=== PATIENT | female | born 1950 | race Caucasian/White ===

== ENCOUNTER 2016-09-23 15:36 | Inpatient (IN) ==
[2016-09-23] MEDS ORDERED: *HR* Morphine 2 MG/ML SYRINGE IVP ONE (16:15)
[2016-09-23] MEDS ORDERED: Ondansetron 4 MG/2 ML VIAL IVP ONE (16:15)
[2016-09-23] MEDS ORDERED: 0.9 % Sodium Chloride 1,000 ML IVC ONE (16:15)
--- NOTE | 2016-09-23 16:15 | Emergency Department Note ---
Disposition Clinical Impression: Choledocholithiasis Pancreatitis Qualifiers: Chronicity: acute Pancreatitis type: biliary Acute pancreatitis complication: unspecified Qualified Code(s): K85.10 - Biliary acute pancreatitis without necrosis or infection Disposition: Admitted As Inpatient Condition: Fair Referrals: NO,PCP [Non-Partnered Physician] - Forms: Work/School Release, ED Satisfaction Letter Time of Disposition: 19:23 Abdominal Pain HPI - General Chief Complaint: ED Abdominal Pain Stated Complaint: ABD Pain x2 weeks Time Seen by Provider: 09/23/16 16:07 Source: patient Nursing Notes Reviewed: Yes Vital Signs Reviewed: Yes - History of Present Illness HPI Narrative: 66-year-old female with abdominal pain for the last week. 02/21, crampy epigastric region into her right upper quadrant to her back. Patient states that she has pain about an hour after she eats. Mostly when she eats fatty or greasy foods. Still has a gallbladder, no history of abdominal surgeries. Otherwise fairly healthy history of hypertension and requested reflux. Pt Subjective Complaint: abdominal pain Onset (ago): hour(s) Location: RUQ Pain Severity: moderate, severe Pain Scale: 9 Quality: cramping, aching Radiation: RUQ, epigastric Migration to: no migration Improves with: nothing Worsens with: eating, vomiting Associated symptoms: Reports: nausea, vomiting, fever, chills. Denies: diarrhea Treatments prior to arrival: none - Related Data Home Medications Medication Instructions Recorded Confirmed Aspirin 10/13/15 Hydrochlorothiazide 10/13/15 Ibuprofen 10/13/15 10/13/15 Meclizine 10/13/15 Pravastatin Sodium 10/13/15 PriLOSEC 10/13/15 Requip 10/13/15 Ropinirole 10/13/15 Previous Rx's Medication Instructions Recorded Benzonatate [Tessalon] 200 mg PO TID PRN #30 capsule 10/13/15 Cephalexin [Keflex] 500 mg PO QID #40 capsule 10/13/15 GuaiFENesin ER [Mucinex] 1,200 mg PO BID #20 tbbp.12hr 10/13/15 DiphenhydraMINE [Benadryl] 25 mg PO Q6HR PRN #20 capsule 04/08/16 MethylPREDNISolone [Medrol] 4 mg PO TAPER #21 tablet 04/08/16 Allergies Allergy/AdvReac Type Severity Reaction Status Date / Time Sulfa (Sulfonamide Allergy Hives Verified 04/08/16 13:29 Antibiotics) All systems ED: reviewed and negative except as stated. Constitutional: Reports: as per HPI, chills Eyes: Denies: eye pain Cardiovascular: Denies: chest pain, palpitations Respiratory: Denies: cough, dyspnea Gastrointestinal: Reports: as per HPI, abdominal pain, nausea. Denies: vomiting , diarrhea Genitourinary: Reports: as per HPI Musculoskeletal: Denies: back pain, neck pain Abdominal Pain PMH - Past Medical History Medical history: Reports: hyperlipidemia, hypertension Female Surgical History: Reports: knee replacement Psychiatric history: Reports: anxiety - Social History Smoking status: Never smoker Alcohol use: Reports: none Drug use: Reports: none Physical Exam Constitutional: Moderately uncomfortable, tachycardic, on review Neck: normal inspection, neck is supple, trachea midline Resp: normal chest inspection, CTA bilaterally, no resp distress CV: RRR, no m/g/r GI: + Moreno's sign, positive tenderness in epigastrium. Back: normal inspection, no tenderness to palpation Neuro: A&O3, no gross motor or sensory deficits bilaterally Skin: No rashes, skin warm, dry, intact - General Limitations: no limitations General appearance: alert, in no apparent distress Course Course Narrative: 66-year-old female with epigastric pain and right upper quadrant pain, we will get a CT abdomen as I feel the differential includes pancreatitis and also choledocholithiasis cholecystitis, Colace lithiasis and biliary colic, had a liver function test IV fluids antiemetics and pain control. - Reevaluation(s) Reevaluation #1: CT scan is positive for possible pancreatic tenderness with choledocholithiasis given elevated bilirubin and lipase I did discuss this with the surgeon Dr. berkowitz he stated that this is not a surgical issue at this time, he will see the patient in consult, but patient needs an ERCP with Dr. Luther admission to medicine service for further evaluation Time: 19:22 Vital Signs Temperature 97.4 F L 09/23/16 15:57 Pulse Rate 102 09/23/16 15:57 Respiratory Rate 16 09/23/16 15:57 Blood Pressure 137/82 09/23/16 15:57 O2 Sat by Pulse Oximetry 92 L 09/23/16 15:57 Temperature 97.4 F L 09/23/16 15:57 Pulse Rate 118 09/23/16 17:35 Respiratory Rate 18 09/23/16 17:35 Blood Pressure 121/63 09/23/16 17:35 O2 Sat by Pulse Oximetry 95 09/23/16 17:35 Oxygen Delivery Oxygen Delivery Room Air Abdominal Pain - Differential Diagnosis Differential Diagnosis: Likely: abdominal pain non-specific, acute appendicitis , constipation, diverticulitis, diverticulosis, endometriosis, gastroenteritis - Medical Records Medical records reviewed: Yes I reviewed the patient's medical records. - Lab Data Lab results reviewed: Yes I reviewed the patient's lab results. Result diagrams: 09/23/16 16:35 09/23/16 16:35 Lab Results 09/23/16 09/23/16 09/23/16 Range/Units 16:35 16:35 16:35 WBC 8.1 (4.3-11.1) K/mcL RBC 4.72 (3.82-4.97) M/mcL Hgb 14.4 (11.5-15.4) g/dL Hct 44.2 (35.3-44.9) % MCV 93.6 (83.0-100.0) fL MCH 30.5 (28.0-33.3) pg MCHC 32.6 (31.6-35.5) g/dL RDW 12.4 (11.5-14.5) % Plt Count 314 (140-400) K/mcL MPV 10.1 (9.4-12.4) fL Immature Gran % 0.4 (0-4) % Seg Neutrophils % 76.8 % Lymphocytes % 13.9 % Monocytes % 6.2 % Eosinophils % 2.0 % Basophils % 0.7 % Neutrophils # 6.2 (1.6-8.9) K/mcL Lymphocytes # 1.1 (0.6-4.6) K/mcL Monocytes # 0.5 (0.0-1.3) K/mcL Eosinophils # 0.2 (0.0-0.6) K/mcL Basophils # 0.1 (0.0-0.2) K/mcL Sodium 140 (136-145) mEq/L Potassium 3.5 (3.5-4.5) mEq/L Chloride 102 (98-109) mEq/L Carbon Dioxide 29 (19-29) mEq/L BUN 18 (7-20) mg/dL Creatinine 0.79 (0.57-1.11) mg/dL Est GFR ( Amer) > 60 (> 60) Est GFR (Non-Af Amer) > 60 (> 60) BUN/Creatinine Ratio 23 (6-26) Glucose 166 H (70-99) mg/dL Calculated Osmolality 296 (280-300) Calcium 9.3 (8.6-10.8) mg/dL Total Bilirubin 2.0 H (0.2-1.2) mg/dL Direct Bilirubin 1.3 H (0.0-0.5) mg/dL Indirect Bilirubin 0.7 (0.0-1.2) mg/dL AST 244 H (5-34) Units/L ALT 403 H (0-55) Units/L Alkaline Phosphatase 131 H (38-126) Units/L Troponin I 0.00 (0-0.03) ng/mL Serum Total Protein 7.5 (6.0-8.3) g/dL Albumin 3.4 L (3.5-5.0) g/dL Globulin 4.1 H (2.4-3.5) g/dL Albumin/Globulin Ratio 0.8 L (1.1-2.2) Amylase 261 H (25-125) Units/L Lipase 1412 H (8-78) Units/L - Radiology Data Radiology results reviewed: Yes I reviewed the patient's radiology results. Abdomen/Pelvis CT 09/23/16 16:15 IMPRESSION: 1. Findings suggestive of cholecystitis. Subtle layering hyperdensity in the gallbladder may represent biliary sludge or noncalcified gallstones. 2. Suspected choledocholithiasis given biliary epithelial enhancement suggestive of cholangitis and findings of pancreatitis. Of note, there are no findings suggestive of pancreatic hemorrhage or necrosis. 3. Abnormal endometrial thickening to 1.1 cm, potentially endometrial hyperplasia, polyp, or carcinoma. Recommend gynecology consultation. 4. Additional incidental findings as above. D/ / Nikunj Hermosillo MD / Nikunj Hermosillo MD Interpreting Provider: Nikunj Hermosillo MD - EKG Data EKG attestation: Yes I reviewed and interpreted this EKG. EKG shows normal: sinus rhythm Rate: normal (No acute ischemic changes 85 bpm normal QRS, CA and QT intervals) When compared to previous EKG there are: no significant changes Interpretation: no acute changes - Core Measures AMI Core Measures Followed: No
--- NOTE | 2016-09-23 16:21 | Emergency Department Note ---
START Narrative - START START: I examined this patient and my medical decision-making was reviewed with the COBOL ENGINEER/PA/Advanced Practice Nurse/Resident Physician. I agree with the documented findings, disposition and treatment plan as described except to the extent set forth below. ED attending note: Patient seen with emergency medicine resident Dr. Mills. Please see a copy of his note for details of the H&P, evaluation, management and disposition of this patient. We independently had [id number] contact with the patient Briefly: A 66-year-old female 2 weeks of epigastric right upper quadrant pain getting worse. Still has her gallbladder or epigastric or voluntary guarding but no rebound. Afebrile stable vital signs. Labs medications ibuprofen fluid and CT scan pending. Disposition pending.
[2016-09-23 16:42] LABS: Basophils # 0.1 K/mcL (0.0-0.2); Basophils % 0.7 %; Eosinophils # 0.2 K/mcL (0.0-0.6); Hematocrit 44.2 % (35.3-44.9); Hemoglobin 14.4 g/dL (11.5-15.4); Immature Granulocytes % 0.4 % (0-4); Lymphocytes # 1.1 K/mcL (0.6-4.6); Lymphocytes % 13.9 %; Mean Corpuscular HGB Conc 32.6 g/dL (31.6-35.5); Mean Corpuscular Hemoglobin 30.5 pg (28.0-33.3); Mean Corpuscular Volume 93.6 fL (83.0-100.0); Mean Platelet Volume 10.1 fL (9.4-12.4); Monocytes # 0.5 K/mcL (0.0-1.3); Monocytes % 6.2 %; Neutrophils # 6.2 K/mcL (1.6-8.9); Platelet Count 314 K/mcL (140-400); Red Blood Count 4.72 M/mcL (3.82-4.97); Red Cell Distribution Width 12.4 % (11.5-14.5); Segmented Neutrophils % 76.8 %
[2016-09-23 16:59] LABS: Potassium 3.5 mEq/L (3.5-4.5); Sodium 140 mEq/L (136-145)
[2016-09-23 17:00] LABS: Alanine Aminotransferase 403 Units/L (0-55); Albumin 3.4 g/dL (3.5-5.0); Albumin/Globulin Ratio 0.8 (1.1-2.2); Alkaline Phosphatase 131 Units/L (38-126); Amylase 261 Units/L (25-125); Aspartate Amino Transferase 244 Units/L (5-34); BUN/Creatinine Ratio 23 (6-26); Bilirubin,Direct 1.3 mg/dL (0.0-0.5); Bilirubin,Indirect 0.7 mg/dL (0.0-1.2); Blood Urea Nitrogen 18 mg/dL (7-20); Calcium 9.3 mg/dL (8.6-10.8); Carbon Dioxide 29 mEq/L (19-29); Chloride 102 mEq/L (98-109); Globulin 4.1 g/dL (2.4-3.5); Glucose 166 mg/dL (70-99); Osmolality,Calculated 296 (280-300); Total Protein 7.5 g/dL (6.0-8.3); eGFR For African Americans > 60 (> 60); eGFR For Non-African Americans > 60 (> 60)
[2016-09-23 17:56] LABS: Lipase 1412 Units/L (8-78)
[2016-09-23] MEDS ORDERED: Naloxone 0.4 MG/ML INJ IVP PRN (21:08)
[2016-09-23] MEDS ORDERED: *HR* HYDROmorphone (PF) 1 MG/ML SYRINGE IVP PRN (21:08)
[2016-09-23] MEDS: Pantoprazole 40 MG VIAL IVP SCH (21:42)
--- NOTE | 2016-09-23 22:24 | Internal Med History&Physical ---
Date of Encounter: 09/23/16 Time of Encounter: 20:15 Internal Medicine - H&P: HPI Chief complaint: abdominal pain, nausea, post-prandial nausea and vomiting x weeks Admitted From: Emergency Dept Plans for Post Hospital Care: Home History of present illness: Ms. Taylor is a 66 year old female significant medical history significant for GERD, without history of cholecystectomy, presents with abdominal pain, post- prandial nausea and vomiting of a couple of months which has worsened the past week. She had not been feeling well for a while. Her PCP evaluated her for thyroid disease. Abdominal pain is colicky, epigastric, medial right upper quadrant and sometime mid-abdomen, and radiates to her back. It is 8/10 at its peak. She reports post-prandial nausea and vomiting, often of recently ingested meals. Non-billious, non-bloody. Nausea and vomiting do not really help her pain. No fever, no jaundice or pruritus. No steatorrhea. No personal history of pancreatitis of cholelithiasis. No sick contacts, no recent travel. Her last colonoscopy was 4-5 years ago, it was reported as normal. She is FULL CODE as per discussion. She nominates her daughter, Marianne Garcia, . ROS: A 10-point ROS was performed, positives and relevant negatives are detailed , system-symptom not mentioned are assumed negative unless otherwise stated. PMH: GERD, prediabetes PSurgical history: left total knee replacement Psychiatry hx: none Family History: Father-heart disease, mother add sister: breast cancer Social history: non-smoker, casual alcohol use, illicit drug use. She works at the [employer]. Vital Signs Temperature 97.4 F L 09/23/16 15:57 Pulse Rate 102 09/23/16 15:57 Respiratory Rate 16 09/23/16 15:57 Blood Pressure 137/82 09/23/16 15:57 O2 Sat by Pulse Oximetry 92 L 09/23/16 15:57 Temperature 97.4 F L 09/23/16 15:57 Pulse Rate 118 09/23/16 17:35 Respiratory Rate 18 09/23/16 17:35 Blood Pressure 121/63 09/23/16 17:35 O2 Sat by Pulse Oximetry 95 09/23/16 17:35 In mild distress from abdominal pain Not pale, anicteric afebrile, acyanotic, Chest: Clinically clear Heart: Tachycardia, RR, HS1/2 no m/r/g. Abdomen: soft, tender in the epigastric, medial right upper quadrant and mid- abdomen, no guarding, Moreno's +ve, no masses. BS+. No Colin or Lyon-Valencia sign. : No flank tenderness, no CVA TENDER, NO SUPRAPUBIC TENDERNESS. GUT SORTER: AAO x 3, no gross focal neurological deficits Skin: no active skin lesion Extremities: no pedal edema, no calf tenderness, normal pedal pulses Lab Results 09/23/16 09/23/16 09/23/16 Range/Units 16:35 16:35 16:35 WBC 8.1 (4.3-11.1) K/mcL RBC 4.72 (3.82-4.97) M/mcL Hgb 14.4 (11.5-15.4) g/dL Hct 44.2 (35.3-44.9) % MCV 93.6 (83.0-100.0) fL MCH 30.5 (28.0-33.3) pg MCHC 32.6 (31.6-35.5) g/dL RDW 12.4 (11.5-14.5) % Plt Count 314 (140-400) K/mcL MPV 10.1 (9.4-12.4) fL Immature Gran % 0.4 (0-4) % Seg Neutrophils % 76.8 % Lymphocytes % 13.9 % Monocytes % 6.2 % Eosinophils % 2.0 % Basophils % 0.7 % Neutrophils # 6.2 (1.6-8.9) K/mcL Lymphocytes # 1.1 (0.6-4.6) K/mcL Monocytes # 0.5 (0.0-1.3) K/mcL Eosinophils # 0.2 (0.0-0.6) K/mcL Basophils # 0.1 (0.0-0.2) K/mcL Sodium 140 (136-145) mEq/L Potassium 3.5 (3.5-4.5) mEq/L Chloride 102 (98-109) mEq/L Carbon Dioxide 29 (19-29) mEq/L BUN 18 (7-20) mg/dL Creatinine 0.79 (0.57-1.11) mg/dL Est GFR ( Amer) > 60 (> 60) Est GFR (Non-Af Amer) > 60 (> 60) BUN/Creatinine Ratio 23 (6-26) Glucose 166 H (70-99) mg/dL Calculated Osmolality 296 (280-300) Calcium 9.3 (8.6-10.8) mg/dL Total Bilirubin 2.0 H (0.2-1.2) mg/dL Direct Bilirubin 1.3 H (0.0-0.5) mg/dL Indirect Bilirubin 0.7 (0.0-1.2) mg/dL AST 244 H (5-34) Units/L ALT 403 H (0-55) Units/L Alkaline Phosphatase 131 H (38-126) Units/L Troponin I 0.00 (0-0.03) ng/mL Serum Total Protein 7.5 (6.0-8.3) g/dL Albumin 3.4 L (3.5-5.0) g/dL Globulin 4.1 H (2.4-3.5) g/dL Albumin/Globulin Ratio 0.8 L (1.1-2.2) Amylase 261 H (25-125) Units/L Lipase 1412 H (8-78) Units/L Abdomen/Pelvis CT 09/23/16 16:15 1. Findings suggestive of cholecystitis. Subtle layering hyperdensity in the gallbladder may represent biliary sludge or noncalcified gallstones. 2. Suspected choledocholithiasis given biliary epithelial enhancement suggestive of cholangitis and findings of pancreatitis. Of note, there are no findings suggestive of pancreatic hemorrhage or necrosis. 3. Abnormal endometrial thickening to 1.1 cm, potentially endometrial hyperplasia, polyp, or carcinoma. IMP 1. Acute cholecystitis 2. Probable choledocholithiasis 3. Gall stone pancreatitis 4. The abscence of fever, jaundice, leucocytosis discounts ascending the diagnostic entity ascending cholangitis 5. Thickening of endometrial stripe, PLAN admit keep npo IVF Optimal analgesia IV Zosyn 3.375 mg Q8H Consult GI, will need ERCP Consult general surgery, will need lap cholecystectomy IV protonix SC Heparin for DVT prophylaxis Gynecological evaluation with travaginal sonogram/hysteroscopy and probable endoetrial biopsy to exclude endometrial malignancy. This can be achieved in the out-patient setting. I discussed my findings and assessment with the patient, she verbalized understanding and is agreeable to admission. Admission mandated by clinical diagnosis and intervention needed. Past Med Surg Social Fam HX - Past Medical History Medical history: hyperlipidemia, hypertension Psychiatric history: anxiety - Past Surgical History Surgical History: knee replacement - Social History Smoking Status: Never smoker Smokeless Tobacco Status: No Alcohol use: none Drug use: none - Family History Mother Living Status: Cause of : breast cancer Internal Medicine - H&P: Meds Aspirin 10/13/15 [History] Benzonatate [Tessalon] 200 mg PO TID PRN #30 capsule 10/13/15 [Rx] Cephalexin [Keflex] 500 mg PO QID #40 capsule 10/13/15 [Rx] GuaiFENesin ER [Mucinex] 1,200 mg PO BID #20 tbbp.12hr 10/13/15 [Rx] Hydrochlorothiazide 10/13/15 [History] Ibuprofen 10/13/15 [History] Meclizine 10/13/15 [History] Pravastatin Sodium 10/13/15 [History] PriLOSEC 10/13/15 [History] Requip 10/13/15 [History] Ropinirole 10/13/15 [History] DiphenhydraMINE [Benadryl] 25 mg PO Q6HR PRN #20 capsule 04/08/16 [Rx] MethylPREDNISolone [Medrol] 4 mg PO TAPER #21 tablet 04/08/16 [Rx] Allergies Sulfa (Sulfonamide Antibiotics) Allergy (Verified 04/08/16 13:29) Hives All Systems PM: A 10-system review of systems was performed and is negative for pertinent findings except as documented above in the HPI. - Constitutional Vitals: Temp Pulse Resp BP Pulse Ox 98.1 F 85 18 116/79 96 09/23/16 20:32 09/23/16 20:32 09/23/16 20:32 09/23/16 20:32 09/23/16 20:32 Internal Med - H&P Results - Labs CBC & Chem 7: 09/23/16 16:35 09/23/16 16:35
[2016-09-23] MEDS: Potassium Chloride 20 MEQ in Ringers Solution, Lactated 1,000 ML IVC SCH (22:34)
[2016-09-23] MEDS: *HR* Heparin 5,000 UNIT/ML VIAL SQ SCH (22:36)
[2016-09-24] MEDS: Piperacillin/Tazobactam 3.375 GM in D5% in Water (Mini-Bag+) 100 ML IVPB SCH ×4 (00:04→23:47)
[2016-09-24] MEDS: *HR* Morphine 2 MG/ML SYRINGE IVP PRN ×4 (03:00→21:37)
[2016-09-24] MEDS: Potassium Chloride 20 MEQ in Ringers Solution, Lactated 1,000 ML IVC SCH ×3 (05:17→18:23)
[2016-09-24] MEDS: *HR* Heparin 5,000 UNIT/ML VIAL SQ SCH ×3 (06:03→21:36)
[2016-09-24] MEDS: Pantoprazole 40 MG VIAL IVP SCH (08:38)
--- NOTE | 2016-09-24 10:12 | Gastroenterology Consult Note ---
<Clair Gaston - Last Filed: 09/24/16 12:03> Date of Encounter: 09/24/16 Time of Encounter: 10:50 - Assessment and plan (1) Elevated LFTs Current Visit: Yes Status: Acute Assessment and plan: 2ndary to choledocholelithiasis. Trending lower, alk phos and bili are back to normal. (2) Pancreatitis Current Visit: Yes Status: Acute Assessment and plan: Likely gallstone induced. R/O other causes. Supportive care. BISAP 1. Aleksandra with IOC to r/o any residual stones. Qualifiers: Chronicity: acute Pancreatitis type: biliary Acute pancreatitis complication: unspecified Qualified Code(s): K85.10 - Biliary acute pancreatitis without necrosis or infection - Time Spent With Patient Total time spent is greater than 50% in coordination of care (as documented) at patient's floor/unit and/or counseling patient: less than 15 minutes GI History of Present Illness - Data of Consult Patient: new to practice Consult date: 09/24/16 Requesting Physician: Fletcher Venegas MD - Consult Narrative Reason for consult: Elevated LFTs, pancreatitis History of present illness: Ms. Taylor is a 66 year old female with a PMH of GERD. She presented to ER with abdominal pain, post-prandial nausea and vomiting over a couple of months which has worsened the past week. She had not been feeling well for a while. Her PCP evaluated her for thyroid disease. Abdominal pain is colicky, epigastric, medial right upper quadrant and sometime mid-abdomen, and radiates to her back. It is 8/10 at its peak. She reports post-prandial nausea and vomiting, often of recently ingested meals. Non-billious, non-bloody. Nausea and vomiting do not really help her pain. No fever, no jaundice or pruritus. No steatorrhea. No personal history of pancreatitis of cholelithiasis. No sick contacts, no recent travel. Her last colonoscopy was 4-5 years ago, it was reported as normal. Patient is feeling better today on pain medications, however, her RUQ abd pain has improved. She has had constipation the last couple of months, going up to a week between BM, but denies black or blood in stools. Denies etoh use or history of same. Colonoscopy: 2015 - [place] - tubular adenoma EGD: None noted Past Med Surg Social Fam HX - Past Medical History Medical history: hyperlipidemia, hypertension Psychiatric history: anxiety - Past Surgical History Surgical History: knee replacement - Social History Smoking Status: Never smoker Smokeless Tobacco Status: No Alcohol use: none Drug use: none - Family History Mother Living Status: Cause of : breast cancer - Gastrointestinal NSAID use: None noted Anticoagulation Use: None Number of BM Per Day: qweekly Gastrointestinal: Present: abdominal pain, constipation, nausea, vomiting - Constitutional Constitutional: as per HPI - EENT Eyes: as per HPI Ears: Present: as per HPI Nose, mouth and throat: Present: as per HPI - Cardiovascular Cardiovascular ROS: Present: as per HPI - Respiratory Respiratory IM: Present: as per HPI - Genitourinary Genitourinary: Present: change in color - Neurological ROS Neurological GI: Present: as per HPI - Hematologic/Lymphatic Hematologic/Lymphatic pediatric: Present: as per HPI - Musculoskeletal Musculoskeletal ROS GI: Present: as per HPI - Integumentary Integumentary GI: Present: as per HPI - Psychiatric ROS Psychiatric GI: Present: as per HPI - Endocrine Endocrine IM: Present: as per HPI - Constitutional Vitals: Temp Pulse Resp BP Pulse Ox 98.1 F 89 15 134/78 90 L 09/24/16 05:37 09/24/16 05:37 09/24/16 05:37 09/24/16 05:37 09/24/16 05:37 General appearance: Present: cooperative, A&O X 3, no acute distress, answers questions appropriately - Head Head exam: Present: atraumatic, normocephalic - Eye Eye exam: Present: normal appearance, sclera anicteric - ENT ENT exam: Present: mucous membranes moist - Neck Neck exam general surgery: Present: normal inspection, trachea midline - Respiratory Respiratory exam: Present: CTAB - Cardiovascular Cardiovascular exam: Present: RRR, +S1, +S2 - GI/Abdominal GI/Abdominal exam: Present: soft, tenderness - Rectal Rectal exam: Present: deferred - Extremities Exam Extremities exam: Present: warm - Neurological Exam Neurological exam: Present: no focal deficits - Psychiatric Psychiatric exam: Present: normal affect, normal mood - Skin Skin exam: Present: dry, intact, normal color, warm Results - Labs CBC & Chem 7: 09/23/16 16:35 09/24/16 09:03 Labs: Last Result Calcium 9.3 mg/dL (8.6-10.8) 09/23/16 16:35 Troponin I 0.00 ng/mL (0-0.03) 09/23/16 16:35 Entire Visit Hgb 14.4 g/dL (11.5-15.4) 09/23/16 16:35 Hct 44.2 % (35.3-44.9) 09/23/16 16:35 Total Bilirubin 2.0 mg/dL (0.2-1.2) H 09/23/16 16:35 AST 244 Units/L (5-34) H 09/23/16 16:35 ALT 403 Units/L (0-55) H 09/23/16 16:35 Amylase 261 Units/L (25-125) H 09/23/16 16:35 Lipase 1412 Units/L (8-78) H 09/23/16 16:35 - Impressions Impressions Chest X-Ray 09/23/16 23:06 IMPRESSION: Cardiomegaly and mild pulmonary vascular congestion. D/ / Yuan Johnson MD / Yuan Johnson MD Interpreting Provider: Yuan Johnson MD Consult Discharge Plan - Plan Referrals: Yadi Samuel, DIGITAL CARTOGRAPHIC TECHNICIAN [Primary Care Provider] - <Lenka Luthered - Last Filed: 09/24/16 18:08> Time of Encounter: 14:00 - Time Spent With Patient Total time spent is greater than 50% in coordination of care (as documented) at patient's floor/unit and/or counseling patient: GI History of Present Illness - Data of Consult Requesting Physician: Fletcher Venegas MD - Consult Narrative History of present illness: Ms. Taylor is a 66 year old female - Constitutional Vitals: Temp Pulse Resp BP Pulse Ox 98.9 F 83 18 122/72 97 09/24/16 15:38 09/24/16 15:38 09/24/16 15:38 09/24/16 15:38 09/24/16 15:38 Results - Labs CBC & Chem 7: 09/23/16 16:35 09/24/16 09:03 Labs: Last Result Calcium 9.6 mg/dL (8.6-10.8) 09/24/16 09:03 Troponin I 0.00 ng/mL (0-0.03) 09/23/16 16:35 Entire Visit Hgb 14.4 g/dL (11.5-15.4) 09/23/16 16:35 Hct 44.2 % (35.3-44.9) 09/23/16 16:35 Total Bilirubin 1.0 mg/dL (0.2-1.2) 09/24/16 09:03 AST 149 Units/L (5-34) H 09/24/16 09:03 ALT 349 Units/L (0-55) H 09/24/16 09:03 Amylase 64 Units/L (25-125) 09/24/16 09:03 Lipase 86 Units/L (8-78) H 09/24/16 09:03 - Impressions Impressions Chest X-Ray 09/23/16 23:06 IMPRESSION: Cardiomegaly and mild pulmonary vascular congestion. D/ / Yuan Johnson MD / Yuan Johnson MD Interpreting Provider: Yuan Johnson MD - Attending Attestation I examined this patient and my medical decision-making was reviewed with the CLAIMS ATTORNEY/PA/Advanced Practice Nurse/Resident Physician. I agree with the documented findings, disposition and treatment plan as described except to the extent set forth below.
[2016-09-24 10:22] LABS: Alanine Aminotransferase 349 Units/L (0-55); Albumin 3.4 g/dL (3.5-5.0); Albumin/Globulin Ratio 0.8 (1.1-2.2); Alkaline Phosphatase 125 Units/L (38-126); Aspartate Amino Transferase 149 Units/L (5-34); BUN/Creatinine Ratio 19 (6-26); Blood Urea Nitrogen 15 mg/dL (7-20); Calcium 9.6 mg/dL (8.6-10.8); Carbon Dioxide 30 mEq/L (19-29); Chloride 103 mEq/L (98-109); Globulin 4.1 g/dL (2.4-3.5); Glucose 95 mg/dL (70-99); Osmolality,Calculated 287 (280-300); Potassium 4.2 mEq/L (3.5-4.5); Sodium 138 mEq/L (136-145); Total Protein 7.5 g/dL (6.0-8.3); eGFR For African Americans > 60 (> 60); eGFR For Non-African Americans > 60 (> 60)
[2016-09-24 11:55] LABS: Amylase 64 Units/L (25-125); Lipase 86 Units/L (8-78)
--- NOTE | 2016-09-24 12:47 | General Surgery Consult Note ---
Date of Encounter: 09/24/16 Time of Encounter: 12:44 History of Present Illness Consult date: 09/24/16 Requesting physician: Fletcher Venegas History of present illness: 66-year-old female admitted after presenting to emergency department with severe cramping epigastric and right upper quadrant abdominal pain. The pain is described as radiating through to the back. The patient indicates that this is one of several episodes, but this was "the worst" . The patient was found to have significant right upper quadrant abdominal pain with abnormal labs including a bilirubin of 2.0, AST 244, ALT 403, phosphatase 131, amylase 261, lipase 1412. CT abdomen and pelvis demonstrated subtle layering hyperdense material in the gallbladder suggestive of biliary sludge or noncalcified gallstones. Diffuse edematous gallbladder wall thickening and pericholecystic stranding described but may be due to the adjacent pancreatitis. There is also note of biliary epithelium enhancement suggestive of cholangitis as well as findings of pancreatitis leading to possible diagnosis of choledocholithiasis. Abnormal endometrial thickening is also described. Since admission, the patient 's symptoms have abated and lab work has also improved significantly. Past medical history: Hyperlipidemia, hypertension; anxiety Surgical history: TKR Allergies: sulfa Medications: Aspirin 81 mg by mouth daily Tessalon 200 mg by mouth 3 times a day when necessary Mucinex 1200 mg by mouth twice a day Hydrochlorothiazide 1 by mouth daily (dose not specified by the patient) Pravastatin Prilosec Ropinirole (history) Diphenhydramine 25 mg by mouth every 6 hours when necessary Social history: Patient is G1, P1; she does not smoke, never has; she does not consume alcohol, she denied any illicit drug use Physical examination: Obese, age-appropriate woman resting comfortably in her hospital bed. Currently afebrile, 99.6; pulse 88, respirations 16, blood pressure 103/69. SPO2 on room air 90% Skin is warm, there is no obvious jaundice Lungs: Clear to auscultation; no obvious abdominal pain with deep inspiration Abdomen: Obese, soft, nontender. No appreciable intra-abdominal masses. No rebound. Bowel sounds present Extremities no obvious clubbing cyanosis or edema Laboratories: White count 8.1, hemoglobin 14.4, hematocrit 44.2; platelet count 314,000 Electrolytes, BUN, creatinine within normal limits Current bilirubin 1.0; AST 149, ALT 349 (much improved); amylase 64, lipase 86 Impression: A 6-year-old female admitted with severe epigastric and right upper quadrant abdominal pain with evidence of gallstone pancreatitis Patient much improved with resolution of abdominal pain, bilirubin, amylase and lipase have returned to normal. I have discussed the patient with Dr Luther, Gastroenterology, he is not planning an ERCP. We will proceed with cholecystectomy and intraoperative cholangiogram. The patient is a good candidate for laparoscopic cholecystectomy but understands that an open cholecystectomy may become necessary. Risks include hemorrhage, Infection, intra-abdominal abscess, bile leak, injury to adjacent ducts, vessels, organs, or bowel. Post cholecystectomy diarrhea is also possible. The surgery may result in recurrent pancreatitis. The procedure is planned for the AM. Consent has been obtained. Past Med Surg Social Fam HX - Past Medical History Medical history: hyperlipidemia, hypertension Psychiatric history: anxiety - Past Surgical History Surgical History: knee replacement - Social History Smoking Status: Never smoker Smokeless Tobacco Status: No Alcohol use: none Drug use: none - Family History Mother Living Status: Cause of : breast cancer Medications and Allergies Aspirin 81 mg PO DAILY 09/24/16 [History] Ergocalciferol (VITAMIN D2) [Vitamin D2] 50,000 unit PO QWEEK 09/24/16 [History] Escitalopram [Lexapro] 10 mg PO DAILY 09/24/16 [History] Gabapentin [Neurontin] 300 mg PO TID 09/24/16 [History] Hydrochlorothiazide [Hydrochlorothiazide] 12.5 mg PO DAILY 09/24/16 [History] Ibuprofen [Ibuprofen] 800 mg PO TID PRN 09/24/16 [History] Lisinopril [Zestril] 5 mg PO DAILY 09/24/16 [History] Omeprazole [PriLOSEC] 20 mg PO DAILY 09/24/16 [History] Ropinirole HCl [Ropinirole HCl] 2 mg PO HS 09/24/16 [History] Allergies Sulfa (Sulfonamide Antibiotics) Allergy (Verified 09/24/16 09:47) Hives Review of Systems All systems PM: A 10-system review of systems was performed and is negative for pertinent findings except as documented above in the HPI. General Surgery Exam Initial Vital Signs Temp Pulse Resp BP Pulse Ox 97.4 F L 102 16 137/82 92 L 09/23/16 15:57 09/23/16 15:57 09/23/16 15:57 09/23/16 15:57 09/23/16 15:57 Exam Initial Vital Signs Temp Pulse Resp BP Pulse Ox 97.4 F L 102 16 137/82 92 L 09/23/16 15:57 09/23/16 15:57 09/23/16 15:57 09/23/16 15:57 09/23/16 15:57 Results - Labs 09/23/16 16:35 09/24/16 09:03 Abnormal lab results Carbon Dioxide 30 mEq/L (19-29) H 09/24/16 09:03 Direct Bilirubin 1.3 mg/dL (0.0-0.5) H 09/23/16 16:35 AST 149 Units/L (5-34) H 09/24/16 09:03 ALT 349 Units/L (0-55) H 09/24/16 09:03 Albumin 3.4 g/dL (3.5-5.0) L 09/24/16 09:03 Globulin 4.1 g/dL (2.4-3.5) H 09/24/16 09:03 Albumin/Globulin Ratio 0.8 (1.1-2.2) L 09/24/16 09:03 Lipase 86 Units/L (8-78) H 09/24/16 09:03 Diabetes panel 09/24/16 Range/Units 09:03 Sodium 138 (136-145) mEq/L Potassium 4.2 (3.5-4.5) mEq/L Chloride 103 (98-109) mEq/L Carbon Dioxide 30 H (19-29) mEq/L BUN 15 (7-20) mg/dL Creatinine 0.80 (0.57-1.11) mg/dL Glucose 95 (70-99) mg/dL Calcium 9.6 (8.6-10.8) mg/dL AST 149 H (5-34) Units/L ALT 349 H (0-55) Units/L Alkaline Phosphatase 125 (38-126) Units/L Albumin 3.4 L (3.5-5.0) g/dL Calcium panel 09/24/16 Range/Units 09:03 Calcium 9.6 (8.6-10.8) mg/dL Albumin 3.4 L (3.5-5.0) g/dL Pituitary panel 09/24/16 Range/Units 09:03 Sodium 138 (136-145) mEq/L Potassium 4.2 (3.5-4.5) mEq/L Chloride 103 (98-109) mEq/L Carbon Dioxide 30 H (19-29) mEq/L BUN 15 (7-20) mg/dL Creatinine 0.80 (0.57-1.11) mg/dL Glucose 95 (70-99) mg/dL Calcium 9.6 (8.6-10.8) mg/dL Adrenal panel 09/24/16 Range/Units 09:03 Sodium 138 (136-145) mEq/L Potassium 4.2 (3.5-4.5) mEq/L Chloride 103 (98-109) mEq/L Carbon Dioxide 30 H (19-29) mEq/L BUN 15 (7-20) mg/dL Creatinine 0.80 (0.57-1.11) mg/dL Glucose 95 (70-99) mg/dL Calcium 9.6 (8.6-10.8) mg/dL Total Bilirubin 1.0 (0.2-1.2) mg/dL AST 149 H (5-34) Units/L ALT 349 H (0-55) Units/L Alkaline Phosphatase 125 (38-126) Units/L Albumin 3.4 L (3.5-5.0) g/dL All other labs normal. Consult Discharge Plan - Plan Referrals: Yadi Samuel, [employer] [Primary Care Provider] -
[2016-09-24] MEDS: rOPINIRole 1 MG TABLET PO SCH ×2 (15:08→21:36)
--- NOTE | 2016-09-24 15:29 | Internal Med Progress Note ---
Date of Encounter: 09/24/16 Time of Encounter: 10:15 - Constitutional Vitals: Temp Pulse Resp BP Pulse Ox 99.6 F 88 16 103/69 90 L 09/24/16 12:11 09/24/16 12:11 09/24/16 12:11 09/24/16 12:11 09/24/16 12:11 Internal Medicine: Result - Labs CBC & Chem 7: 09/23/16 16:35 09/24/16 09:03 Labs: BMP 09/24/16 09:03 Sodium 138 Potassium 4.2 Chloride 103 Carbon Dioxide 30 H BUN 15 Creatinine 0.80 Glucose 95 Calcium 9.6 Liver Function 09/24/16 Range/Units 09:03 Total Bilirubin 1.0 (0.2-1.2) mg/dL AST 149 H (5-34) Units/L ALT 349 H (0-55) Units/L Alkaline Phosphatase 125 (38-126) Units/L Albumin 3.4 L (3.5-5.0) g/dL - Impressions Impressions Chest X-Ray 09/23/16 23:06 IMPRESSION: Cardiomegaly and mild pulmonary vascular congestion. D/ / Yuan Johnson MD / Yuan Johnson MD Interpreting Provider: Yuan Johnson MD - VTE Documentation of Mechanical Device: Graduated compression elastic hosiery Consult Discharge Plan - Plan Referrals: Yadi Samuel, CHIEF DEPUTY CLERK/BAILIFF [Primary Care Provider] -
--- NOTE | 2016-09-24 15:36 | Electrocardiograph Report ---
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
[2016-09-24] MEDS: Ondansetron 4 MG/2 ML VIAL IVP PRN ×2 (15:59→23:48)
--- NOTE | 2016-09-24 19:13 | Anesthesia Evaluation PreOp ---
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 (anxiety) Other Medical History: GERD Anesthesia History: No Prior Anesthetic Complications, Past Anesthesia (tka) Alcohol Use: none Drug use: none Medications and Allergies Aspirin 81 mg PO DAILY 09/24/16 [History] Ergocalciferol (VITAMIN D2) [Vitamin D2] 50,000 unit PO QWEEK 09/24/16 [History] Escitalopram [Lexapro] 10 mg PO DAILY 09/24/16 [History] Gabapentin [Neurontin] 300 mg PO TID 09/24/16 [History] Hydrochlorothiazide [Hydrochlorothiazide] 12.5 mg PO DAILY 09/24/16 [History] Ibuprofen [Ibuprofen] 800 mg PO TID PRN 09/24/16 [History] Lisinopril [Zestril] 5 mg PO DAILY 09/24/16 [History] Omeprazole [PriLOSEC] 20 mg PO DAILY 09/24/16 [History] Ropinirole HCl [Ropinirole HCl] 2 mg PO HS 09/24/16 [History] Allergies Sulfa (Sulfonamide Antibiotics) Allergy (Verified 09/24/16 09:47) Hives - Meds/Allergy Pre-op Review Medications Reviewed: Yes Allergies Reviewed: Yes Beta Blockers on Current Med List: No Anesthesia Results - Labs 09/23/16 16:35 09/24/16 09:03 - Imaging EKG: report reviewed (09/28, sr, rbbb) Anesthesia Exam Vital Signs/O2 Sat/Glucose, Most Current Temp Pulse Resp BP Pulse Ox 09/24/16 15:38 98.9 F 83 18 122/72 97 - HEENT Pupil (Motor): Pupils equal, EOMI Mallampati: III Teeth: Poor dentition Oral Opening: Greater than 3 (good underbite) - CIVIL RIGHTS INVESTIGATOR LOC: Oriented CIVIL RIGHTS INVESTIGATOR Motor: Normal RUE, Normal LUE, Normal RLE, Normal LLE, Normal Face CIVIL RIGHTS INVESTIGATOR Sensory: Normal: RUE, LUE, RLE, LLE, Face - Cardiac Rhythm: Regular Murmur: None - Pulmonary Breath Sounds: bilateral Clear Respiratory Effort: Symmetrical Anesthesia Assess/Plan ASA Score: 2 Modified Trina Scale for Level of Consciousness: Cooperative, oriented, and tranquil Anesthetic Plan: General Monitoring Plan: Standard Monitors Recovery Plan: PACU
[2016-09-25] MEDS: Potassium Chloride 20 MEQ in Ringers Solution, Lactated 1,000 ML IVC SCH ×2 (00:30→07:02)
[2016-09-25] MEDS: *HR* Heparin 5,000 UNIT/ML VIAL SQ SCH (06:26)
[2016-09-25 08:29] LABS: Albumin/Globulin Ratio 0.8 (1.1-2.2); Bilirubin,Direct 0.4 mg/dL (0.0-0.5); Bilirubin,Indirect 0.4 mg/dL (0.0-1.2); Bilirubin,Total 0.8 mg/dL (0.2-1.2); Globulin 3.9 g/dL (2.4-3.5); Total Protein 6.9 g/dL (6.0-8.3)
[2016-09-25] MEDS: Piperacillin/Tazobactam 3.375 GM in D5% in Water (Mini-Bag+) 100 ML IVPB SCH (08:55)
[2016-09-25] MEDS: Pantoprazole 40 MG VIAL IVP SCH (08:55)
[2016-09-25] MEDS: rOPINIRole 1 MG TABLET PO SCH ×2 (08:57→22:11)
[2016-09-25] MEDS: Ondansetron 4 MG/2 ML VIAL IVP PRN (10:57)
[2016-09-25] MEDS ORDERED: Bupivacaine/EPI 1:200k 0.25%PF 30 ML VIAL ONE (12:06)
[2016-09-25] MEDS ORDERED: *HR* Labetalol 100 MG/20 ML MDV IVP PRN (13:03)
[2016-09-25] MEDS ORDERED: *HR* HYDROmorphone (PF) 1 MG/ML SYRINGE IVP PRN (13:03)
[2016-09-25] MEDS ORDERED: Ondansetron 4 MG/2 ML VIAL IVP ONE (13:03)
[2016-09-25] MEDS ORDERED: *HR* Promethazine 25 MG/ML VIAL IVP PRN (13:03)
[2016-09-25] MEDS ORDERED: Lidocaine -MPF 4% 5 ML AMPUL ONE (13:08)
[2016-09-25] MEDS ORDERED: *HR* Succinylcholine 200 MG/10 ML VIAL IVP ONE (13:08)
[2016-09-25] MEDS ORDERED: Ondansetron 4 MG/2 ML VIAL ONE ×2 (13:08→14:23)
[2016-09-25] MEDS ORDERED: Dexamethasone 4 MG/ML VIAL ONE ×2 (13:08→14:23)
[2016-09-25] MEDS ORDERED: *HR* Rocuronium Bromide 50 MG/5 ML VIAL ONE (13:08)
[2016-09-25] MEDS ORDERED: *HR* Propofol 200 MG/20 ML VIAL IVP ONE (13:09)
[2016-09-25] MEDS ORDERED: *HR* FentaNYL (PF) 100 MCG/2 ML VIAL ONE (13:09)
[2016-09-25] MEDS ORDERED: Lidocaine -MPF 2% 2 ML VIAL ONE (13:10)
--- NOTE | 2016-09-25 13:56 | Internal Med Progress Note ---
Date of Encounter: 09/25/16 Time of Encounter: 13:49 - Assessment and plan (1) Choledocholithiasis Current Visit: Yes Status: Acute Assessment and plan: Patient much improved with resolution of abdominal pain, bilirubin, amylase and lipase have returned to normal. no plan for ERCP. scheduled for lap cholecystectomy today. post op care as per surgery. DVT prophylaixs (2) Pancreatitis Current Visit: Yes Status: Acute Assessment and plan: Patient much improved with resolution of abdominal pain, bilirubin, amylase and lipase have returned to normal. lap linden for today. will follow after surgery. Qualifiers: Chronicity: acute Pancreatitis type: biliary Acute pancreatitis complication: unspecified Qualified Code(s): K85.10 - Biliary acute pancreatitis without necrosis or infection - Time Spent With Patient 25 - 35 minutes - Subjective Interval history: Patient seen at the bedside, reports that the abdominal pain is better. Schedule for lap cholecystectomy today. - Constitutional Vitals: Temp Pulse Resp BP Pulse Ox 97.6 F 78 16 129/84 95 09/25/16 12:24 09/25/16 12:24 09/25/16 12:24 09/25/16 12:24 09/25/16 12:24 General appearance: Present: A&O X 3, no acute distress Exam: - Head Head exam: Present: atraumatic, normocephalic - Eye Eye exam: Present: normal appearance, sclera anicteric - ENT ENT exam: Present: mucous membranes moist - Neck Neck exam general surgery: Present: normal inspection, trachea midline - Respiratory Respiratory exam: Present: CTAB - Cardiovascular Cardiovascular exam: Present: RRR, +S1, +S2 - GI/Abdominal GI/Abdominal exam: Present: soft, tenderness - Rectal Rectal exam: Present: deferred - Extremities Exam Extremities exam: Present: warm - Neurological Exam Neurological exam: Present: no focal deficits - Psychiatric Psychiatric exam: Present: normal affect, normal mood - Skin Skin exam: Present: dry, intact, normal color, warm Internal Medicine: Result - Labs CBC & Chem 7: 09/23/16 16:35 09/24/16 09:03 Labs: Liver Function 09/25/16 Range/Units 04:22 Total Bilirubin 0.8 (0.2-1.2) mg/dL Direct Bilirubin 0.4 (0.0-0.5) mg/dL AST 69 H (5-34) Units/L ALT 228 H (0-55) Units/L Alkaline Phosphatase 111 (38-126) Units/L Albumin 3.0 L (3.5-5.0) g/dL - VTE Documentation of Mechanical Device: Graduated compression elastic hosiery Consult Discharge Plan - Plan Referrals: Yadi Samuel, DEWER [Primary Care Provider] -
[2016-09-25] MEDS ORDERED: Neostigmine Methylsulfate 3 MG/3 ML SYRINGE ONE (14:34)
[2016-09-25] MEDS ORDERED: Ringers Solution, Lactated 1,000 ML ONE (15:45)
[2016-09-25] MEDS ORDERED: Ringers Solution, Lactated 500 ML IVC ONE (16:13)
--- NOTE | 2016-09-25 16:27 | Operative Note ---
Date of procedure: 09/25/16 Pre-op diagnosis: gallstone pancreatitis Post-op diagnosis: same Procedure: laparoscopic cholecystectomy with intra operative cholangiogram Complications: none apparent Anesthesia: GETA Local Anesthetics: 0.25% Sensorcaine HCL with Epinephrine 1:200,000 SubQ (cc) ( 15mL) Surgeon: Peterson Germain Estimated blood loss (cc): 5 IV fluids (cc): 1,500 Specimen: gallbladder Condition: stable Disposition: PACU Procedure in Detail: The patient was brought to the operating room where she was placed supine upon the operating room table. The patient was appropriately identified as to person and procedure. The accuracy of this information was confirmed by the procedure team. The patient was intubated and anesthetized by Neon Anesthesia. The abdomen was prepped and draped in the usual sterile fashion. Several milliliters of 0.25% bupivacaine was infiltrated into the infraumbilical skin. A small transverse incision was made, the dissection was carried to the fascia. Additional bupivacaine with epinephrine was infiltrated into the fascia. The fascia was then grasped, elevated, and incised. An 11 mm Xcel port was established. The rigid laparoscope was placed within the obturator to visualize passage through the layers of the anterior abdominal wall. Once the abdominal cavity was accessed, the obturator was replaced by the rigid laparoscope and the abdomen was insufflated with gaseous carbon dioxide. There is no obvious visible injury from establishing the port. Under direct visualization, 3 additional ports were placed along the right costal margin in the subxiphoid, midclavicular, and anterior axillary lines. The sites were infiltrated with the 0.25% bupivacaine with 1-200,000 units epinephrine. The gallbladder was difficult to identify due to the patient's body habitus. A 12 mm Xcel port was established midway between the xiphoid and the umbilicus, alllowing placement of an Endoscopic Paddle Retractor to facilitate exposure. The gallbladder was then grasped and retracted cephalad. The hepatoduodenal ligament was dissected and the cystic duct skeletonized. The duct was clipped near the infundibulum of the gallbladder. Via a separate percutaneous insertion site, a Cook cholangiogram catheter was introduced. The cystic duct was incised, the cholangiogram catheter inserted. Using C-arm fluoroscopy a cholangiogram was then completed demonstrating a normal-appearing hepatobiliary tree with smooth tapering contour to the sphincter. There was free flow of contrast into the duodenum. There were no filling defects. Neon Radiology provided an intraoperative reading indicating no observed filling defects. The cholangiogram catheter was removed. The cystic duct was doubly clipped and divided. The cystic artery was clipped twice proximally, once distally, and divided. The gallbladder was dissected from the liver bed using Ethicon harmonic erika. It should be noted that the liver appeared abnormal with significant fatty infiltration. Once the gallbladder was from the liver bed, it was placed in an endoscopic pouch and extracted through the infraumbilical opening. The gallbladder was retrieved and sent to pathology for analysis. The liver bed was inspected for adequate hemostasis. Once this was assured, the pneumoperitoneum was evacuated and the instrumentation removed. The fascia of the infraumbilical opening was closed with interrupted [id number] 0 Vicryl using S retractors. The port sites were closed with subcuticular 4-0 Vicryl. Incisions were sealed with Dermabond dermal adhesive. The patient was taken to recovery in stable condition. Needle, sponge, and instrument counts were correct at the close of the case. Total volume of 0.25% bupivacaine with 1-200,000 units epinephrine 15 mL.
--- NOTE | 2016-09-25 16:30 | Anesthesia Evaluation Post Op ---
Date of Encounter: 09/25/16 Time of Encounter: 16:30 - Vital Signs Vital Signs: Vital Signs/O2 Sat, Most Current Temp Pulse Resp BP Pulse Ox 97.4 F L 76 20 131/70 95 09/25/16 16:13 09/25/16 16:23 09/25/16 16:23 09/25/16 16:23 09/25/16 16:23 - Lungs Lungs: Clear Ascult./Percussion - Airway Airway: Non-obstructed - Cardiovascular Regular Rate - Mental Status Mental Status: Asleep with brisk response to light stimulation - Pain Pain Scale: 5 Pain Scale used: Numeric (1 - 10) - Nausea Vomiting Nausea Vomiting: Responds to treatment with IV Meds - Hydration Hydration: NPO, Has not voided - Discharge PostOp Status: Transfer Patient to floor
[2016-09-25] MEDS ORDERED: Ringers Solution, Lactated 1,000 ML IVC SCH (16:54)
[2016-09-25] MEDS ORDERED: Ondansetron 4 MG/2 ML VIAL IVP PRN (16:54)
[2016-09-25] MEDS ORDERED: *HR* OxyCODONE/APAP 5/325 TABLET PO PRN (16:54)
[2016-09-25] MEDS ORDERED: Acetaminophen 325 MG TABLET PO PRN (16:54)
[2016-09-25] MEDS ORDERED: Naloxone 0.4 MG/ML INJ IVP PRN (16:54)
[2016-09-25] MEDS: *HR* HYDROmorphone 2 MG/ML SYRINGE IVP PRN ×2 (17:49→22:12)
[2016-09-26 06:04] LABS: Basophils % 0.2 %; Eosinophils % 0.2 %; Hematocrit 39.2 % (35.3-44.9); Immature Granulocytes % 0.3 % (0-4); Lymphocytes # 1.4 K/mcL (0.6-4.6); Lymphocytes % 10.3 %; Mean Corpuscular HGB Conc 32.7 g/dL (31.6-35.5); Mean Corpuscular Hemoglobin 31.4 pg (28.0-33.3); Mean Corpuscular Volume 96.1 fL (83.0-100.0); Mean Platelet Volume 10.8 fL (9.4-12.4); Monocytes # 1.1 K/mcL (0.0-1.3); Monocytes % 8.3 %; Neutrophils # 10.6 K/mcL (1.6-8.9); Platelet Count 277 K/mcL (140-400); Red Blood Count 4.08 M/mcL (3.82-4.97); Red Cell Distribution Width 12.4 % (11.5-14.5); Segmented Neutrophils % 80.7 %
[2016-09-26 06:07] LABS: Hemoglobin 12.8 g/dL (11.5-15.4)
[2016-09-26 06:24] LABS: Alanine Aminotransferase 158 Units/L (0-55); Albumin 2.7 g/dL (3.5-5.0); Albumin/Globulin Ratio 0.7 (1.1-2.2); Alkaline Phosphatase 97 Units/L (38-126); Amylase 20 Units/L (25-125); Aspartate Amino Transferase 45 Units/L (5-34); BUN/Creatinine Ratio 15 (6-26); Bilirubin,Total 0.6 mg/dL (0.2-1.2); Blood Urea Nitrogen 11 mg/dL (7-20); Calcium 8.8 mg/dL (8.6-10.8); Carbon Dioxide 28 mEq/L (19-29); Chloride 102 mEq/L (98-109); Globulin 3.9 g/dL (2.4-3.5); Glucose 131 mg/dL (70-99); Lipase 18 Units/L (8-78); Osmolality,Calculated 287 (280-300); Potassium 4.2 mEq/L (3.5-4.5); Sodium 138 mEq/L (136-145); Total Protein 6.6 g/dL (6.0-8.3); eGFR For African Americans > 60 (> 60); eGFR For Non-African Americans > 60 (> 60)
[2016-09-26 07:23] VITALS: BP 124/75
--- NOTE | 2016-09-26 08:15 | General Surgery Progress Note ---
Date of Encounter: 09/26/16 Time of Encounter: 08:07 Subjective Patient reports: feels better Narrative: Postoperative day 1: Patient feeling well, as expected, has postoperative port site tenderness. Afebrile, no nausea vomiting. Pulse 77, respirations 16, blood pressure 124/75. Lungs: Clear, no obvious abdominal pain with deep inspiration Abdomen: Obese, with minimal tenderness for infraumbilical and supraumbilical port sites. All ports clean and dry. White count 13.1 - expected response to surgery Hemoglobin 12.8, hematocrit 39.2 - reflecting perioperative hydration/IV fluids Electrolytes, BUN, creatinine within normal limits AST 45, ALT 158 both continuing to improve; alkaline phosphatase 97. Amylase 20, lipase 18 Impression: Gallstone pancreatitis, postoperative day one, doing well. Acceptable postoperative status Morbid obesity Hypertension - stable Hyperlipidemia Anxiety Recommendation: May discharge home when medically stable Follow-up my office, 10/04 for 10/05/16. Patient to call office in a.m. for appointment Patient may consume a regular diet Patient may shower, wash incisions with soap and water Activity as tolerated; lifting limited to less than 20 pounds Tylenol, ibuprofen, Motrin, Advil, etc. as needed for pain Percocet 5/325, #15, 1 every 6 hours as needed for pain not relieved by over- the-counter medications (prescription provided) Objective Vital Signs - Last 8 Hours Temp Pulse Resp BP Pulse Ox 09/26/16 07:02 97.8 F 77 16 124/75 95 09/26/16 05:09 97.9 F 84 16 111/69 96 09/26/16 00:42 98.2 F 81 14 112/68 93 L Intake and Output 09/25/16 09/26/16 09/26/16 23:59 07:59 15:59 Intake Total 500 / 500 515 / 515 Output Total 800 / 800 Balance 500 / 500 -285 / -285 Intake: IV Fluids 500 / 500 515 / 515 Lactated Ringers 1,000 ML 500 / 500 As .ROUTE .STK-MED ONE Rx#:[id number] Lactated Ringers 1,000 ML 515 / 515 @ 75 mls/hr IVC .[id number] JORGE L Rx#:[id number] Oral 0 / 0 Output: Urine 800 / 800 Other: Weight 140.5 kg Blood Glucose* 97 Patient Weight 09/26/16 23:59 Weight 140.5 kg - Labs 09/26/16 05:21 09/26/16 05:21 Diabetes panel 09/25/16 09/26/16 Range/Units 04:22 05:21 Sodium 138 (136-145) mEq/L Potassium 4.2 (3.5-4.5) mEq/L Chloride 102 (98-109) mEq/L Carbon Dioxide 28 (19-29) mEq/L BUN 11 (7-20) mg/dL Creatinine 0.73 (0.57-1.11) mg/dL Glucose 131 H (70-99) mg/dL Calcium 8.8 (8.6-10.8) mg/dL AST 69 H 45 H (5-34) Units/L ALT 228 H 158 H (0-55) Units/L Alkaline Phosphatase 111 97 (38-126) Units/L Albumin 3.0 L 2.7 L (3.5-5.0) g/dL Calcium panel 09/25/16 09/26/16 Range/Units 04:22 05:21 Calcium 8.8 (8.6-10.8) mg/dL Albumin 3.0 L 2.7 L (3.5-5.0) g/dL Pituitary panel 09/26/16 Range/Units 05:21 Sodium 138 (136-145) mEq/L Potassium 4.2 (3.5-4.5) mEq/L Chloride 102 (98-109) mEq/L Carbon Dioxide 28 (19-29) mEq/L BUN 11 (7-20) mg/dL Creatinine 0.73 (0.57-1.11) mg/dL Glucose 131 H (70-99) mg/dL Calcium 8.8 (8.6-10.8) mg/dL Adrenal panel 09/25/16 09/26/16 Range/Units 04:22 05:21 Sodium 138 (136-145) mEq/L Potassium 4.2 (3.5-4.5) mEq/L Chloride 102 (98-109) mEq/L Carbon Dioxide 28 (19-29) mEq/L BUN 11 (7-20) mg/dL Creatinine 0.73 (0.57-1.11) mg/dL Glucose 131 H (70-99) mg/dL Calcium 8.8 (8.6-10.8) mg/dL Total Bilirubin 0.8 0.6 (0.2-1.2) mg/dL AST 69 H 45 H (5-34) Units/L ALT 228 H 158 H (0-55) Units/L Alkaline Phosphatase 111 97 (38-126) Units/L Albumin 3.0 L 2.7 L (3.5-5.0) g/dL - VTE Documentation of Mechanical Device: Intermittent pneumatic compression device Consult Discharge Plan - Plan Referrals: Peterson Germain MD [Non-Partnered Physician] - Yadi Samuel CNP [Primary Care Provider] -
--- NOTE | 2016-09-26 08:17 | Discharge Summary ---
Outpatient Proc Discharge Plan - Plan Prescriptions: OxyCODONE/APAP 5/325 [Percocet 5/325 MG] 1 each PO Q6H PRN #15 tablet PRN Reason: Pain Home Medications: Aspirin 81 mg PO DAILY 09/24/16 [History] Ergocalciferol (VITAMIN D2) [Vitamin D2] 50,000 unit PO QWEEK 09/24/16 [History] Escitalopram [Lexapro] 10 mg PO DAILY 09/24/16 [History] Gabapentin [Neurontin] 300 mg PO TID 09/24/16 [History] Hydrochlorothiazide [Hydrochlorothiazide] 12.5 mg PO DAILY 09/24/16 [History] Ibuprofen [Ibuprofen] 800 mg PO TID PRN 09/24/16 [History] Lisinopril [Zestril] 5 mg PO DAILY 09/24/16 [History] Omeprazole [PriLOSEC] 20 mg PO DAILY 09/24/16 [History] Ropinirole HCl [Ropinirole HCl] 2 mg PO HS 09/24/16 [History] OxyCODONE/APAP 5/325 [Percocet 5/325 MG] 1 each PO Q6H PRN #15 tablet 09/26/16 [ Rx]
[2016-09-26] MEDS: rOPINIRole 1 MG TABLET PO SCH (09:41)
--- NOTE | 2016-09-26 10:05 | Discharge Summary ---
Date of Encounter: 09/26/16 Time of Encounter: 10:04 - Discharge Diagnosis (1) Choledocholithiasis Priority: Primary Status: Acute (2) Pancreatitis Priority: Primary Status: Acute Qualifiers: Chronicity: acute Pancreatitis type: biliary Acute pancreatitis complication: unspecified Qualified Code(s): K85.10 - Biliary acute pancreatitis without necrosis or infection - Discharge Medications Prescriptions: OxyCODONE/APAP 5/325 [Percocet 5/325 MG] 1 each PO Q6H PRN #15 tablet PRN Reason: Pain Home Medications: Aspirin 81 mg PO DAILY 09/24/16 [History] Ergocalciferol (VITAMIN D2) [Vitamin D2] 50,000 unit PO QWEEK 09/24/16 [History] Escitalopram [Lexapro] 10 mg PO DAILY 09/24/16 [History] Gabapentin [Neurontin] 300 mg PO TID 09/24/16 [History] Hydrochlorothiazide [Hydrochlorothiazide] 12.5 mg PO DAILY 09/24/16 [History] Ibuprofen [Ibuprofen] 800 mg PO TID PRN 09/24/16 [History] Lisinopril [Zestril] 5 mg PO DAILY 09/24/16 [History] Omeprazole [PriLOSEC] 20 mg PO DAILY 09/24/16 [History] Ropinirole HCl [Ropinirole HCl] 2 mg PO HS 09/24/16 [History] OxyCODONE/APAP 5/325 [Percocet 5/325 MG] 1 each PO Q6H PRN #15 tablet 09/26/16 [ Rx] Allergies/Adverse Reactions: Allergies Sulfa (Sulfonamide Antibiotics) Allergy (Verified 09/24/16 09:47) Hives Date of admission: 09/23/16 21:32 Primary care physician: Yadi Samuel CNP Discharging clinician: Bella Florence Anticipated date of discharge: 09/26/16 - Patient Status Disposition: Home, Self-Care Condition: Fair Functional capacity at discharge: independent ambulation Overall status at discharge: patient is back to baseline - Discharge Instructions Follow Up With: Peterson Germain MD [Non-Partnered Physician] - Yadi Samuel CNP [Primary Care Provider] - - Diet and Activity Activity: resume usual activities as tolerated Diet: advance to your usual diet Interval History: 66-year-old female admitted after presenting to emergency department with severe cramping epigastric and right upper quadrant abdominal pain. The patient was found to have significant right upper quadrant abdominal pain with abnormal labs including a bilirubin of 2.0, AST 244, ALT 403, phosphatase 131, amylase 261, lipase 1412. CT abdomen and pelvis demonstrated subtle layering hyperdense material in the gallbladder suggestive of biliary sludge or noncalcified gallstones. Diffuse edematous gallbladder wall thickening and pericholecystic stranding described but may be due to the adjacent pancreatitis. There is also note of biliary epithelium enhancement suggestive of cholangitis as well as findings of pancreatitis leading to possible diagnosis of choledocholithiasis. Abnormal endometrial thickening is also described. initially treated conservatively for acute pancreatitis. GI and general surgery was consulted. she underwent lap cholecytsectomy with intra operative cholangiogram. post op care was managed by surgery. she did well with no post op complications and remained hemodynamicaly stable. se is being dc in stable condition today, will f/u as OP with surgery. Hospital course: Ms. Taylor is a 66 year old female Time spent discussing smoking cessation with patient: more than 10 minutes - Time Spent with Patient Total time spent providing and/or coordinating discharge services: Greater than 30 minutes - Constitutional Vitals: Temp Pulse Resp BP Pulse Ox 97.8 F 77 16 124/75 95 09/26/16 07:02 09/26/16 07:02 09/26/16 07:02 09/26/16 07:02 09/26/16 07:02 General appearance: Present: A&O X 3, no acute distress Exam: - Head Head exam: Present: atraumatic, normocephalic - Eye Eye exam: Present: normal appearance, sclera anicteric - ENT ENT exam: Present: mucous membranes moist - Neck Neck exam general surgery: Present: normal inspection, trachea midline - Respiratory Respiratory exam: Present: CTAB - Cardiovascular Cardiovascular exam: Present: RRR, +S1, +S2 - GI/Abdominal GI/Abdominal exam: Present: soft, mild tenderness at the surgical site, site appears clean. - Extremities Exam Extremities exam: Present: warm - Neurological Exam Neurological exam: Present: no focal deficits - Psychiatric Psychiatric exam: Present: normal affect, normal mood - Skin Skin exam: Present: dry, intact, normal color, warm - VTE Documentation of Mechanical Device: Intermittent pneumatic compression device
== END 2016-09-26 13:37 | disposition home or self-care (01) | DRG 419 ==
LOC: EMEROO 15:36 → 3ANU 15:36 → SUATTDRO 21:32
PROVIDERS: ADMIT Nurse Practitioner Family; ATTEND Internal Medicine Endocrinology, Diabetes & Metabolism

== ENCOUNTER 2020-06-17 15:10 | Observation (INO) ==
[2020-06-17] MEDS ORDERED: Aspirin 325 MG TABLET PO ONE (15:38)
[2020-06-17 16:35] LABS: Basophils # 0.1 K/mcL (0.0-0.2); Basophils % 0.4 %; Eosinophils # 0.1 K/mcL (0.0-0.6); Eosinophils % 0.7 %; Hematocrit 42.1 % (35.3-44.9); Hemoglobin 13.5 g/dL (11.5-15.4); Immature Granulocytes % 0.8 % (0-4); Lymphocytes # 1.1 K/mcL (0.6-4.6); Lymphocytes % 7.4 %; Mean Corpuscular HGB Conc 32.1 g/dL (31.6-35.5); Mean Corpuscular Hemoglobin 30.2 pg (28.0-33.3); Mean Corpuscular Volume 94.2 fL (83.0-100.0); Mean Platelet Volume 10.7 fL (9.4-12.4); Monocytes % 7.2 %; Platelet Count 356 K/mcL (140-400); Red Blood Count 4.47 M/mcL (3.82-4.97); Red Cell Distribution Width 13.2 % (11.5-14.5); Segmented Neutrophils % 83.5 %; White Blood Count 14.4 K/mcL (4.3-11.1)
[2020-06-17 16:53] LABS: BUN/Creatinine Ratio 26 (6-26); Blood Urea Nitrogen 35 mg/dL (8-23); Calcium 9.7 mg/dL (8.6-10.3); Carbon Dioxide 27 mEq/L (23-29); Chloride 98 mEq/L (98-107); Glucose 111 mg/dL (70-105); Osmolality,Calculated 289 (280-300); Potassium 4.3 mEq/L (3.5-5.1); Sodium 135 mEq/L (136-145); Troponin I < 0.03 ng/mL (< 0.04); eGFR For African Americans 47 (> 60); eGFR For Non-African Americans 39 (> 60)
[2020-06-17] MEDS ORDERED: Acetaminophen 325 MG TABLET PO PRN (18:06)
[2020-06-17] MEDS ORDERED: Naloxone 0.4 MG/ML INJ IVP PRN (18:06)
[2020-06-17] MEDS ORDERED: 0.9 % Sodium Chloride 1,000 ML IVC SCH (18:15)
[2020-06-17] MEDS ORDERED: Prochlorperazine 10 MG/2 ML VIAL IVP PRN (18:34)
[2020-06-17] MEDS: Apixaban 5 MG TABLET PO SCH (19:30)
[2020-06-17] MEDS: rOPINIRole 1 MG TABLET PO SCH (20:36)
[2020-06-17 22:48] LABS: Bacteria,Urine Few per hpf (None-Few); Bilirubin,Urine Negative (Negative); Blood,Urine Small (Negative); Color,Urine Yellow (Yellow); Glucose,Urine (UA) Normal (Normal); Hyaline Casts,Urine Few per lpf (None Seen); Ketones,Urine Negative (Negative); Leukocyte Esterase,Urine Negative (Negative); Mucus,Urine Few per lpf (None-Few); Nitrite,Urine Negative (Negative); PH,Urine 5.5 pH Units (5.0-8.0); Protein,Urine Trace mg/dL (Neg-Trace); Specific Gravity,Urine 1.015 (1.010-1.025); Squamous Epithelial Cell,Urine Few per hpf (None-Few); Urobilinogen,Urine Normal (Normal)
[2020-06-17 22:49] LABS: Clarity,Urine Slightly Hazy (Clear)
[2020-06-18 01:19] LABS: Hematocrit 40.6 % (35.3-44.9); Hemoglobin 13.1 g/dL (11.5-15.4); Mean Corpuscular HGB Conc 32.3 g/dL (31.6-35.5); Mean Platelet Volume 10.4 fL (9.4-12.4); Platelet Count 301 K/mcL (140-400); Red Blood Count 4.23 M/mcL (3.82-4.97); Red Cell Distribution Width 13.4 % (11.5-14.5); White Blood Count 10.6 K/mcL (4.3-11.1)
[2020-06-18 01:35] LABS: BUN/Creatinine Ratio 29 (6-26); Blood Urea Nitrogen 38 mg/dL (8-23); Calcium 9.2 mg/dL (8.6-10.3); Carbon Dioxide 27 mEq/L (23-29); Chloride 98 mEq/L (98-107); Chol/HDL Ratio 4.2 (0-4.9); Cholesterol 161 mg/dL (< 200); Glucose 116 mg/dL (70-105); HDL Cholesterol 38 mg/dL (40-59); LDL Cholesterol,Calculated 104 mg/dL (< 100); Osmolality,Calculated 290 (280-300); Phosphorous 4.7 mg/dL (2.7-4.5); Potassium 4.1 mEq/L (3.5-5.1); Sodium 135 mEq/L (136-145); Triglycerides 97 mg/dL (< 150); Troponin I < 0.03 ng/mL (< 0.04); eGFR For African Americans 49 (> 60); eGFR For Non-African Americans 40 (> 60)
[2020-06-18] MEDS ORDERED: Perflutren Lipid Microsphere 1.3 ML in 0.9 % Sodium Chloride 8.7 ML IVP PRN (06:57)
[2020-06-18] MEDS: Apixaban 5 MG TABLET PO SCH (08:10)
[2020-06-18] MEDS: Aspirin 81 MG TAB.CHEW PO SCH (08:10)
[2020-06-18] MEDS: Cholecalciferol (D-3) 1,000 UNIT (25MCG) TABLET PO SCH (08:10)
[2020-06-18] MEDS: rOPINIRole 1 MG TABLET PO SCH ×2 (08:10→20:04)
[2020-06-18 08:18] LABS: Estimated Average Glucose 148 mg/dl
[2020-06-18] MEDS ORDERED: lisinopriL 5 MG TABLET PO SCH (09:00)
[2020-06-18] MEDS ORDERED: Dextrose Gel 15 GM/37.5 ML TUBE PO PRN ×2 (11:59)
[2020-06-18] MEDS ORDERED: *HR* Dextrose 50 % in Water (Vial) 50 ML VIAL IVP PRN (11:59)
[2020-06-18] MEDS ORDERED: D5% in Water 1,000 ML IVC PRN (11:59)
[2020-06-18] MEDS ORDERED: FluocinoNIDE 0.05% CRM 15 GM TUBE TP PRN (16:09)
[2020-06-18] MEDS ORDERED: Ergocalciferol (VIT D2) 50,000 UNIT (1.25MG) CAP PO SCH (16:15)
[2020-06-18] MEDS: Insulin LISPRO 300 UNITS/3 ML VIAL SQ SCH ×2 (17:00→20:04)
[2020-06-18] MEDS ORDERED: NON-FORMULARY MEDICATION 1 EACH EACH (Ropinirole Hcl [Requip] 4 MG) PO SCH (21:00)
[2020-06-19 06:23] LABS: Hematocrit 41.4 % (35.3-44.9); Hemoglobin 13.3 g/dL (11.5-15.4); Mean Corpuscular HGB Conc 32.1 g/dL (31.6-35.5); Mean Corpuscular Hemoglobin 30.9 pg (28.0-33.3); Mean Corpuscular Volume 96.3 fL (83.0-100.0); Mean Platelet Volume 10.4 fL (9.4-12.4); Platelet Count 294 K/mcL (140-400); Red Cell Distribution Width 13.2 % (11.5-14.5); White Blood Count 9.2 K/mcL (4.3-11.1)
[2020-06-19 06:24] LABS: Basophils # 0.1 K/mcL (0.0-0.2); Basophils % 0.9 %; Eosinophils # 0.2 K/mcL (0.0-0.6); Eosinophils % 2.1 %; Hematocrit 41.3 % (35.3-44.9); Hemoglobin 13.2 g/dL (11.5-15.4); Immature Granulocytes % 0.8 % (0-4); Lymphocytes # 1.2 K/mcL (0.6-4.6); Lymphocytes % 12.4 %; Mean Corpuscular Hemoglobin 30.7 pg (28.0-33.3); Mean Platelet Volume 10.1 fL (9.4-12.4); Monocytes % 10.7 %; Neutrophils # 6.8 K/mcL (1.6-8.9); Platelet Count 311 K/mcL (140-400); Red Cell Distribution Width 13.2 % (11.5-14.5); Segmented Neutrophils % 73.1 %; White Blood Count 9.3 K/mcL (4.3-11.1)
[2020-06-19 06:37] LABS: BUN/Creatinine Ratio 28 (6-26); Blood Urea Nitrogen 21 mg/dL (8-23); Calcium 9.7 mg/dL (8.6-10.3); Carbon Dioxide 30 mEq/L (23-29); Chloride 101 mEq/L (98-107); Glucose 112 mg/dL (70-105); Osmolality,Calculated 284 (280-300); Potassium 4.2 mEq/L (3.5-5.1); Sodium 135 mEq/L (136-145); eGFR For African Americans > 60 (> 60); eGFR For Non-African Americans > 60 (> 60)
[2020-06-19] MEDS: Insulin LISPRO 300 UNITS/3 ML VIAL SQ SCH ×4 (08:08→20:21)
[2020-06-19] MEDS: Aspirin 81 MG TAB.CHEW PO SCH (09:33)
[2020-06-19] MEDS: rOPINIRole 1 MG TABLET PO SCH ×2 (09:33→20:24)
[2020-06-19] MEDS: Cholecalciferol (D-3) 1,000 UNIT (25MCG) TABLET PO SCH (09:34)
[2020-06-19] MEDS: *HR* Acetylcysteine 20% 600 MG/3 ML ORAL SYRINGE PO SCH (21:33)
[2020-06-20 06:37] LABS: Basophils # 0.1 K/mcL (0.0-0.2); Basophils % 0.7 %; Eosinophils # 0.2 K/mcL (0.0-0.6); Eosinophils % 2.3 %; Hematocrit 40.6 % (35.3-44.9); Hemoglobin 13.1 g/dL (11.5-15.4); Immature Granulocytes % 0.6 % (0-4); Lymphocytes # 1.1 K/mcL (0.6-4.6); Lymphocytes % 11.1 %; Mean Corpuscular HGB Conc 32.3 g/dL (31.6-35.5); Mean Corpuscular Hemoglobin 31.4 pg (28.0-33.3); Mean Corpuscular Volume 97.4 fL (83.0-100.0); Mean Platelet Volume 10.5 fL (9.4-12.4); Monocytes # 0.9 K/mcL (0.0-1.3); Monocytes % 9.5 %; Neutrophils # 7.5 K/mcL (1.6-8.9); Platelet Count 310 K/mcL (140-400); Red Blood Count 4.17 M/mcL (3.82-4.97); Red Cell Distribution Width 13.1 % (11.5-14.5); Segmented Neutrophils % 75.8 %; White Blood Count 9.9 K/mcL (4.3-11.1)
[2020-06-20 07:05] LABS: BUN/Creatinine Ratio 26 (6-26); Blood Urea Nitrogen 19 mg/dL (8-23); Calcium 9.6 mg/dL (8.6-10.3); Carbon Dioxide 27 mEq/L (23-29); Chloride 100 mEq/L (98-107); Glucose 114 mg/dL (70-105); Magnesium 1.9 mg/dL (1.6-2.6); Osmolality,Calculated 283 (280-300); Potassium 4.3 mEq/L (3.5-5.1); Sodium 135 mEq/L (136-145); eGFR For African Americans > 60 (> 60); eGFR For Non-African Americans > 60 (> 60)
[2020-06-20] MEDS: *HR* Acetylcysteine 20% 600 MG/3 ML ORAL SYRINGE PO SCH (09:12)
[2020-06-20] MEDS: Insulin LISPRO 300 UNITS/3 ML VIAL SQ SCH (09:12)
[2020-06-20] MEDS: Aspirin 81 MG TAB.CHEW PO SCH (09:12)
[2020-06-20] MEDS: Cholecalciferol (D-3) 1,000 UNIT (25MCG) TABLET PO SCH (09:13)
[2020-06-20] MEDS: rOPINIRole 1 MG TABLET PO SCH ×2 (09:13→12:08)
[2020-06-20] MEDS ORDERED: 0.9 % Sodium Chloride 2,000 ML ONE (09:59)
[2020-06-20] MEDS ORDERED: Heparin 1,000 UNITS/500 mL 500 ML ONE (09:59)
[2020-06-20] MEDS ORDERED: ISOVUE-370 200 ML INFUS..BTL ONE (09:59)
[2020-06-20] MEDS ORDERED: *HR* Heparin 10,000 UNIT/10 ML VIAL ONE (09:59)
[2020-06-20] MEDS ORDERED: Nitroglycerin 1,000 MCG/10 ML VIAL IV ONE (09:59)
[2020-06-20] MEDS ORDERED: *HR* FentaNYL (PF) 100 MCG/2 ML VIAL ONE (10:34)
[2020-06-20] MEDS ORDERED: *HR* Midazolam HCl 2 MG/2 ML VIAL ONE (10:34)
[2020-06-20 13:05] VITALS: BP 93/57
[2020-06-20] MEDS ORDERED: Apixaban 5 MG TABLET PO SCH (21:00)
== END 2020-06-20 17:20 | disposition home or self-care (01) ==
LOC: EMEROOARM 15:10 → 3BNU 15:10 → SUATTDRO 18:11 → 3BNU 18:50
PROVIDERS: ADMIT Internal Medicine; ATTEND Pharmacist

== ENCOUNTER 2020-07-18 14:53 | Observation (INO) ==
[2020-07-18] MEDS ORDERED: Ondansetron 4 MG/2 ML VIAL IVP ONE (15:59)
[2020-07-18] MEDS ORDERED: Isovue-370 500 ML BOTTLE IVP ONE (16:10)
[2020-07-18 16:31] LABS: INR 1.5; Prothrombin Time 16.7 Seconds (9.4-12.1)
[2020-07-18 16:32] LABS: Basophils # 0.1 K/mcL (0.0-0.2); Basophils % 0.6 %; Eosinophils % 0.1 %; Hematocrit 39.3 % (35.3-44.9); Hemoglobin 12.6 g/dL (11.5-15.4); Immature Granulocytes % 1.3 % (0-4); Lymphocytes # 0.7 K/mcL (0.6-4.6); Lymphocytes % 8.9 %; Mean Corpuscular HGB Conc 32.1 g/dL (31.6-35.5); Mean Corpuscular Hemoglobin 30.3 pg (28.0-33.3); Mean Corpuscular Volume 94.5 fL (83.0-100.0); Mean Platelet Volume 10.2 fL (9.4-12.4); Monocytes # 0.9 K/mcL (0.0-1.3); Monocytes % 11.3 %; Platelet Count 258 K/mcL (140-400); Red Blood Count 4.16 M/mcL (3.82-4.97); Red Cell Distribution Width 13.4 % (11.5-14.5); Segmented Neutrophils % 77.8 %; White Blood Count 7.7 K/mcL (4.3-11.1)
[2020-07-18 16:34] LABS: Activated Partial Thrombo Time 64.4 Seconds (26.0-36.0)
[2020-07-18 17:04] LABS: Alanine Aminotransferase 37 Units/L (7-52); Albumin 3.7 g/dL (3.5-5.7); Albumin/Globulin Ratio 1.1 (1.1-2.2); Alkaline Phosphatase 67 Units/L (34-104); Aspartate Amino Transferase 29 Units/L (13-39); BUN/Creatinine Ratio 21 (6-26); Bilirubin,Direct 0.3 mg/dL (0.0-0.2); Bilirubin,Indirect 0.7 mg/dL (0.0-1.0); Blood Urea Nitrogen 19 mg/dL (8-23); Calcium 9.4 mg/dL (8.6-10.3); Carbon Dioxide 30 mEq/L (23-29); Chloride 95 mEq/L (98-107); Globulin 3.5 g/dL (2.4-3.5); Glucose 120 mg/dL (70-105); Lipase 12 Units/L (11-82); Osmolality,Calculated 281 (280-300); Potassium 3.4 mEq/L (3.5-5.1); Sodium 134 mEq/L (136-145); Total Protein 7.2 g/dL (6.4-8.9); Troponin I 0.06 ng/mL (< 0.04); eGFR For African Americans > 60 (> 60); eGFR For Non-African Americans > 60 (> 60)
[2020-07-18] MEDS ORDERED: Aspirin 81 MG TAB.CHEW PO SCH (17:15)
[2020-07-18 17:27] LABS: Adenovirus Not Detected (Not Detect); Bordetella Pertussis Not Detected (Not Detect); Chlamydophila pneumoniae Not Detected (Not Detect); Coronavirus 229E Not Detected (Not Detect); Coronavirus HKU1 Not Detected (Not Detect); Coronavirus NL63 Not Detected (Not Detect); Coronavirus OC43 Not Detected (Not Detect); Human Metapneumovirus Not Detected (Not Detect); Human Rhinovirus/Enterovirus Not Detected (Not Detect); Influenza A Subtype 2009 H1 Not Detected (Not Detect); Influenza B Not Detected (Not Detect); Mycoplasma pneumoniae Not Detected (Not Detect); Parainfluenza Virus 1 Not Detected (Not Detect); Parainfluenza Virus 2 Not Detected (Not Detect); Parainfluenza Virus 3 Not Detected (Not Detect); Parainfluenza Virus 4 Not Detected (Not Detect); Respiratory Syncytial Virus Not Detected (Not Detect); SARS-CoV-2 Not Detected (Not Detect)
[2020-07-18 18:06] LABS: Bacteria,Urine Few per hpf (None-Few); Bilirubin,Urine Negative (Negative); Blood,Urine Small (Negative); Clarity,Urine Turbid (Clear); Color,Urine Yellow (Yellow); Glucose,Urine (UA) Normal (Normal); Hyaline Casts,Urine Few per lpf (None Seen); Ketones,Urine Negative (Negative); Leukocyte Esterase,Urine Moderate (Negative); Mucus,Urine Few per lpf (None-Few); Nitrite,Urine Negative (Negative); Protein,Urine 100 mg/dL (Neg-Trace); Specific Gravity,Urine 1.027 (1.010-1.025); Squamous Epithelial Cell,Urine Few per hpf (None-Few); WBC,Urine 30-50 per hpf (0-3)
[2020-07-18] MEDS ORDERED: cefTRIAXone 1,000 MG in 0.9 % Sodium Chloride Mini Bag 100 ML IVPB ONE (18:23)
[2020-07-18] MEDS ORDERED: CefTRIAXone 1,000 MG VIAL ONE (18:30)
[2020-07-18] MEDS: DilTIAZem 50 MG/50 ML IV.SOLN IVC SCH (19:49)
[2020-07-18] MEDS ORDERED: *HR* Heparin 5,000 UNIT/ML VIAL IVP ONE (20:52)
[2020-07-18] MEDS ORDERED: *HR* Heparin 5,000 UNIT/ML VIAL IVP PRN ×2 (20:52)
[2020-07-18] MEDS ORDERED: Heparin 25,000UNIT/250ML 1/2NS 25,000 UNIT/250 ML IV.SOLN IVC SCH (21:00)
[2020-07-18] MEDS ORDERED: Azithromycin 500 MG in 0.9 % Sodium Chloride 250 ML IVPB SCH (21:00)
[2020-07-18] MEDS ORDERED: Potassium Chloride Elixir 20 MEQ/15 ML UDC PO ONE (21:00)
[2020-07-18] MEDS ORDERED: Acetaminophen 325 MG TABLET PO PRN (21:03)
[2020-07-18] MEDS ORDERED: Naloxone 0.4 MG/ML INJ IVP PRN (21:06)
[2020-07-18] MEDS ORDERED: Prochlorperazine 10 MG/2 ML VIAL IVP PRN (21:10)
[2020-07-18 22:28] LABS: INR 1.4; Prothrombin Time 15.8 Seconds (9.4-12.1)
[2020-07-18 22:32] LABS: Hematocrit 39.4 % (35.3-44.9); Hemoglobin 12.9 g/dL (11.5-15.4); Mean Corpuscular HGB Conc 32.7 g/dL (31.6-35.5); Mean Corpuscular Hemoglobin 30.9 pg (28.0-33.3); Mean Corpuscular Volume 94.3 fL (83.0-100.0); Mean Platelet Volume 10.1 fL (9.4-12.4); Platelet Count 265 K/mcL (140-400); Red Blood Count 4.18 M/mcL (3.82-4.97); Red Cell Distribution Width 13.6 % (11.5-14.5); White Blood Count 6.1 K/mcL (4.3-11.1)
[2020-07-19] MEDS ORDERED: *HR* Metoprolol 5 MG/5 ML VIAL IVP ONE (00:13)
[2020-07-19] MEDS ORDERED: DilTIAZem SR (12hr) 60 MG CAP.ER.12H PO ONE ×2 (03:00)
[2020-07-19] MEDS: DilTIAZem 50 MG/50 ML IV.SOLN IVC SCH (05:16)
[2020-07-19 06:27] LABS: Hematocrit 36.2 % (35.3-44.9); Hemoglobin 11.8 g/dL (11.5-15.4); Mean Corpuscular HGB Conc 32.6 g/dL (31.6-35.5); Mean Corpuscular Hemoglobin 30.9 pg (28.0-33.3); Mean Corpuscular Volume 94.8 fL (83.0-100.0); Mean Platelet Volume 10.2 fL (9.4-12.4); Platelet Count 219 K/mcL (140-400); Red Blood Count 3.82 M/mcL (3.82-4.97); Red Cell Distribution Width 13.5 % (11.5-14.5); White Blood Count 6.7 K/mcL (4.3-11.1)
[2020-07-19 06:39] LABS: BUN/Creatinine Ratio 22 (6-26); Blood Urea Nitrogen 19 mg/dL (8-23); Calcium 9.2 mg/dL (8.6-10.3); Carbon Dioxide 32 mEq/L (23-29); Chloride 95 mEq/L (98-107); Chol/HDL Ratio 3.8 (0-4.9); Cholesterol 130 mg/dL (< 200); Glucose 121 mg/dL (70-105); HDL Cholesterol 34 mg/dL (40-59); LDL Cholesterol,Calculated 76 mg/dL (< 100); Osmolality,Calculated 286 (280-300); Potassium 3.1 mEq/L (3.5-5.1); Sodium 136 mEq/L (136-145); Triglycerides 101 mg/dL (< 150); Troponin I 0.03 ng/mL (< 0.04); eGFR For African Americans > 60 (> 60); eGFR For Non-African Americans > 60 (> 60)
[2020-07-19] MEDS ORDERED: Heparin 25,000UNIT/250ML 1/2NS 25,000 UNIT/250 ML IV.SOLN IVC SCH (06:45)
[2020-07-19] MEDS ORDERED: Aspirin Enteric Coated 81 MG Tablet PO SCH (09:00)
[2020-07-19 09:30] LABS: Estimated Average Glucose 154 mg/dl
[2020-07-19] MEDS ORDERED: Apixaban 5 MG TABLET PO SCH (10:00)
[2020-07-19] MEDS ORDERED: rOPINIRole 1 MG TABLET PO SCH (10:00)
[2020-07-19] MEDS ORDERED: FluocinoNIDE 0.05% CRM 15 GM TUBE TP PRN (10:27)
[2020-07-19] MEDS ORDERED: Cholecalciferol (D-3) 1,000 UNIT (25MCG) TABLET PO SCH (10:30)
[2020-07-19 11:43] VITALS: BP 107/69
[2020-07-19] MEDS ORDERED: cefTRIAXone 1,000 MG in 0.9 % Sodium Chloride Mini Bag 100 ML IVPB SCH (18:30)
[2020-07-20] MEDS ORDERED: Spironolactone 25 MG TABLET PO SCH (09:00)
[2020-07-20] MEDS ORDERED: lisinopriL 5 MG TABLET PO SCH (09:00)
[2020-07-20] MEDS ORDERED: Furosemide 40 MG TABLET PO SCH (09:00)
[2020-07-20] MEDS ORDERED: NON-FORMULARY MEDICATION 1 EACH EACH (Omeprazole [Prilosec] 40 MG) PO SCH (09:00)
== END 2020-07-19 17:48 | disposition home or self-care (01) ==
LOC: EMEROOARM 14:53 → 2ANU 14:53 → SUATTDRO 20:15 → 2ANU 21:40
PROVIDERS: ADMIT Student in an Organized Health Care Education/Training Program; ATTEND Family Medicine